=== PATIENT | male | born 2000 | race Caucasian/White ===

== ENCOUNTER 2019-01-24 09:48 | Emergency (ER) | payer BC, OTHER ==
[2019-01-24 09:56] VITALS: BP 137/90; PULSE 58; TEMP 98.5; BMI 21.1
[2019-01-24] MEDS ORDERED: IBUPROFEN 400 MG TABLET (FP) PO ONE ×2 (10:11→10:13)
--- NOTE | 2019-01-24 10:11 | PDOC ---
History of Present Illness - General Chief Complaint: Injury Stated Complaint: THUMB INJURY Time Seen by Provider: 01/24/19 10:10 - History of Present Illness Initial Comments: 01/24/19 10:11 Plan: Left thumb injury HPI: Slammed his left thumb in a car door last night. Pain and swelling. Review of systems: No skin damage and no bleeding. No deformity. Pain distal phalanx, under the nail only. 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 Physical exam: Alert cheerful and cooperative mild to moderate distress due to pain in his thumb Afebrile, vital signs normal Left thumb: There is no deformity, either angular or rotational. There is no swelling or tenderness of the IP joint. There is mild swelling of the distal phalanx and tenderness over the dorsum of the nail. There is no abrasion laceration or other sign of skin damage. There is no subungual hematoma visible. Capillary refill is intact. No other injuries to the fingers or hand are noted. Impression: Crush injury, possible nondisplaced fracture of the distal phalanx. No sign of joint injury or possible displaced fracture Plan: No x-ray necessary. Even if the fracture were present, it would not change the management. Rest ice and elevate. Motrin. Tube gauze applied for cushioning and splinting. Follow-up hand specialist if there is persistent pain swelling or limited motion 1 to 2 weeks. Past History - Past Medical History Allergies/Adverse Reactions: Allergies Allergy/AdvReac Type Severity Reaction Status Date / Time Penicillins Allergy Unknown Verified 01/24/19 09:50 Home Medications: Ambulatory Orders Ibuprofen 800 mg PO TID PRN #20 tablet 01/24/19 COPD: No - Immunization History Immunization Up to Date: Yes - Psycho Social/Smoking Cessation Hx Smoking History: Never smoked Hx Alcohol Use: No Drug/Substance Use Hx: No *Physical Exam - Vital Signs Last Vital Signs Temp Pulse Resp BP Pulse Ox 98.5 F 58 L 15 137/90 97 01/24/19 09:49 01/24/19 09:49 01/24/19 09:49 01/24/19 09:49 01/24/19 09:49 Medical Decision Making - Medical Decision Making 11/30/19 10:27 Took Motrin. Somewhat improved. Tube gauze applied for cushioning and partial splinting. Follow-up 1 week if symptoms persist. Discharge with mother and no severe pain or other distress. Discharge - Discharge Information Problems reviewed: Yes Clinical Impression/Diagnosis: Crush injury Condition: Improved Disposition: HOME - Admission No - Additional Discharge Information Prescriptions: Ibuprofen 800 mg PO TID PRN #20 tablet PRN Reason: Pain - Follow up/Referral Referrals: Vernon Brooks MD [Staff Physician] - 7 days - Patient Discharge Instructions Patient Printed Discharge Instructions: DI for Crush Injury Additional Instructions: Rest, ice, elevate, Motrin for pain and swelling If pain or swelling persists 1 to 2 weeks, recheck is recommended by hand specialist. If there is increased blood buildup under the fingernail, the nail could be punctured and fluid removed. This would help discomfort. Seek medical attention if this is necessary. - Post Discharge Activity
== END 2019-01-24 10:30 | disposition home or self-care (01) ==
LOC: FER 09:48
PROC: 2W3HX1Z Immobilization of Left Thumb using Splint (ICD-10-PCS; principal; 2019-01-24)
DX: S67.02XA Crushing injury of left thumb, initial encounter (principal); W23.1XXA Caught, crushed, jammed, or pinched between stationary objects, initial encounter; Y93.9 Activity, unspecified; Z88.0 Allergy status to penicillin
CPT/HCPCS: 99282-25